=== PATIENT | male | born 1960 | race Caucasian/White ===

== ENCOUNTER 2017-06-29 19:14 | Emergency (ER) | payer MEDICAID, OTHER ==
[~2017-06-29] VITALS: Ht 180.3 cm; Wt 76.5 kg
[~2017-06-29 19:14] MED LIST: BACT800T5 PO
[2017-06-29 19:28] VITALS: RESP 18; O2SAT 98
[2017-06-29 19:29] VITALS: BP 155/87; PULSE 94; RESP 18; TEMP 99.1; O2SAT 97
[2017-06-29] MEDS ORDERED: SODIUM CHLORID 0.9% 500 ML INJ 500 ML IV ONE (19:30)
[2017-06-29] MEDS ORDERED: SODIUM CHLORIDE 0.9% FLUSH 10 ML FLUSH IVF PRN (19:30)
[2017-06-29] MEDS ORDERED: ASPIRIN 325 MG TAB PO ONE (19:30)
--- NOTE | 2017-06-29 19:38 | PD ---
HPI Chief Complaint: Chest Pain Time Seen by Provider: 19:18 Travel History International Travel<30 days: No Contact w/Intl Traveler<30days: No Traveled to known affect area: No History of Present Illness HPI Patient is 56 years old and arrives to the ER complaining of retrosternal chest pain. He reports cough and congestion for the past several days consistent with a URI. 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 Associated symptoms include shortness of breath. Ambulation to the car from work and seemed to worsen pain. He has no family history of coronary artery disease. He denies a personal history of diabetes hypertension or hyperlipidemia. He smokes. [facility] Past Medical History Diminished Hearing: No ?: Not Social History Alcohol Use: No Tobacco Use: Yes (08/07 PPD) Substance Use: No Allergies-Medications (Allergen,Severity, Reaction): Coded Allergies: No Known Allergies (Unverified , 09/16/14) Reported Meds & Prescriptions Reported Meds & Active Scripts Active Azithromycin 250 Mg Tab 250 Mg PO DAILY Bactrim DS (Sulfamethoxazole-Trimethoprim DS) 1 Tab Tab 1 Tab PO BID Review of Systems Except as stated in HPI: all other systems reviewed are Neg General / Constitutional: No: Fever Cardiovascular: Positive: Chest Pain or Discomfort, No: Diaphoresis Respiratory: Positive: Cough, Shortness of Breath Physical Exam Narrative GENERAL: 56-year-old male mild distress secondary to pain and/or shortness of breath and her anxiety SKIN: Warm and dry. HEAD: Atraumatic. Normocephalic. EYES: Pupils equal and round. No scleral icterus. No injection or drainage. ENT: No nasal bleeding or discharge. Mucous membranes pink and moist. NECK: Trachea midline. No JVD. CARDIOVASCULAR: Heart rate is approximately 100. It is regular. RESPIRATORY: Breath sounds are clear bilaterally. No tachypnea. GASTROINTESTINAL: Abdomen soft, non-tender, nondistended. Hepatic and splenic margins not palpable. MUSCULOSKELETAL: Extremities without clubbing, cyanosis, or edema. No obvious deformities. NEUROLOGICAL: Awake and alert. No obvious cranial nerve deficits. Motor grossly within normal limits. Five out of 5 muscle strength in the arms and legs. Normal speech. PSYCHIATRIC: Appropriate mood and affect; insight and judgment normal. Data Data Last Documented VS Vital Signs Date Time Temp Pulse Resp B/P (MAP) Pulse Ox O2 Delivery O2 Flow Rate FiO2 06/29/17 20:24 99.0 90 18 156/77 (103) 97 06/29/17 19:35 Nasal Cannula 2.00 Vital signs reviewed Orders Orders Electrocardiogram (06/29/17 19:24) Ckmb (Isoenzyme) Profile (06/29/17 19:24) Complete Blood Count With Diff (06/29/17 19:24) Comprehensive Metabolic Panel (06/29/17 19:24) Magnesium (Mg) (06/29/17 19:24) Troponin I (06/29/17 19:24) Lipase (06/29/17 19:24) Chest, Single Ap (06/29/17 19:24) Ecg Monitoring (06/29/17 19:24) Iv Access Insert/Monitor (06/29/17 19:24) Oximetry (06/29/17 19:24) Oxygen Administration (06/29/17 19:24) Aspirin (Aspirin) (06/29/17 19:30) Sodium Chloride 0.9% Flush (Ns Flush) (06/29/17 19:30) Nitroglycerin Sl (Nitrostat Sl) (06/29/17 19:30) Sodium Chlorid 0.9% 500 Ml Inj (Ns 500 M (06/29/17 19:30) CKMB (06/29/17 19:30) CKMB% (06/29/17 19:30) Azithromycin (Zithromax) (06/29/17 20:15) Ed Discharge Order (06/29/17 20:14) Labs Laboratory Tests Test 06/29/17 19:30 White Blood Count 15.3 TH/MM3 Red Blood Count 4.25 MIL/MM3 Hemoglobin 12.8 GM/DL Hematocrit 39.4 % Mean Corpuscular Volume 92.7 FL Mean Corpuscular Hemoglobin 30.1 PG Mean Corpuscular Hemoglobin Concent 32.5 % Red Cell Distribution Width 12.6 % Platelet Count 349 TH/MM3 Mean Platelet Volume 7.9 FL Neutrophils (%) (Auto) 79.6 % Lymphocytes (%) (Auto) 13.0 % Monocytes (%) (Auto) 6.6 % Eosinophils (%) (Auto) 0.6 % Basophils (%) (Auto) 0.2 % Neutrophils # (Auto) 12.2 TH/MM3 Lymphocytes # (Auto) 2.0 TH/MM3 Monocytes # (Auto) 1.0 TH/MM3 Eosinophils # (Auto) 0.1 TH/MM3 Basophils # (Auto) 0.0 TH/MM3 CBC Comment DIFF FINAL Differential Comment Blood Urea Nitrogen 9 MG/DL Creatinine 0.88 MG/DL Random Glucose 94 MG/DL Total Protein 7.9 GM/DL Albumin 3.3 GM/DL Calcium Level 8.8 MG/DL Magnesium Level 1.8 MG/DL Alkaline Phosphatase 77 U/L Aspartate Amino Transf (AST/SGOT) 20 U/L Alanine Aminotransferase (ALT/SGPT) 28 U/L Total Bilirubin 0.7 MG/DL Sodium Level 136 MEQ/L Potassium Level 3.3 MEQ/L Chloride Level 103 MEQ/L Carbon Dioxide Level 22.6 MEQ/L Anion Gap 10 MEQ/L Estimat Glomerular Filtration Rate 90 ML/MIN Total Creatine Kinase 150 U/L Creatine Kinase MB 2.1 NG/ML Troponin I LESS THAN 0.02 NG/ML Lipase 118 U/L [facility] Medical Decision Making Medical Screen Exam Complete: Yes Emergency Medical Condition: Yes Medical Record Reviewed: Yes Differential Diagnosis NSTEMI, unstable angina, coronary vasospasm, PE, PTX, aortic dissection, pericarditis, myocarditis, endocarditis, PNA, esophageal disease, aneurysm, musculoskeletal etiologies, anxiety, cocaine/sympathomimetic abuse Narrative Course EKG sinus, rate 101, minimal widening of the QRS complex however no ST flattening or T-wave inversion CBC & BMP Diagram 06/29/17 19:30 Total Protein 7.9, Albumin 3.3 L, Calcium Level 8.8, Magnesium Level 1.8, Alkaline Phosphatase 77, Aspartate Amino Transf (AST/SGOT) 20, Alanine Aminotransferase (ALT/SGPT) 28, Total Bilirubin 0.7 Troponin less than 0.02 Last 24 hours Impressions Chest X-Ray 06/29/171923 Signed Impressions: Service Date/Time: Friday, June 30, 2017 07:49 - CONCLUSION: Faint interstitial infiltrates without consolidation left lower lung. Bakari Arshad MD Azithromycin script Return precautions discussed Follow-up with primary care discussed Diagnosis Primary Impression: Pneumonia Qualified Codes: J18.9 - Pneumonia, unspecified organism Referrals: Primary Care Physician Additional Instructions: PLEASE FOLLOW UP WITH DR ROSSI TO DISCUSS THE NEED FOR AN OUTPATIENT CARDIAC STRESS TEST. Med/Other Pt SpecificInfo: Prescription(s) given Scripts Azithromycin (Azithromycin) 250 Mg Tab 250 MG PO DAILY for Infection, #4 TAB 0 Refills Prov: Isacc Leal MD 06/29/17 Disposition: 01 DISCHARGE HOME Condition: Stable Isacc Leal MD Jun 29, 2017 19:38
[2017-06-29 19:50] LABS: AUTOMATED NEUTROPHIL # 12.2 TH/MM3 (1.8-7.7); BASOPHIL % 0.2 % (0.0-2.0); EOSINOPHIL # 0.1 TH/MM3 (0-0.4); EOSINOPHIL % 0.6 % (0.0-4.0); HEMATOCRIT 39.4 % (39.0-51.0); MEAN CELL VOLUME 92.7 FL (80.0-100.0); MEAN CORPUSCULAR HEMOGLOBIN 30.1 PG (27.0-34.0); MEAN CORPUSCULAR HGB CONC 32.5 % (32.0-36.0); MONO % 6.6 % (0.0-8.0); NEUT % 79.6 % (16.0-70.0); PLATELET COUNT 349 TH/MM3 (150-450); RED BLOOD COUNT 4.25 MIL/MM3 (4.50-5.90); RED CELL DISTRIBUTION WIDTH 12.6 % (11.6-17.2); WHITE BLOOD COUNT 15.3 TH/MM3 (4.0-11.0)
[2017-06-29 19:51] LABS: HEMO FLAGS DIFF FINAL
[2017-06-29] MEDS: NITROGLYCERIN 0.4 MG SL 25 TABS/BTL SL SCH ×3 (19:54→20:12)
[2017-06-29 19:56] LABS: CHLORIDE 103 MEQ/L (98-107); POTASSIUM 3.3 MEQ/L (3.5-5.1); SODIUM (NA) 136 MEQ/L (136-145)
[2017-06-29 20:00] LABS: ANION GAP 10 MEQ/L (5-15); BICARBONATE 22.6 MEQ/L (21.0-32.0); BLOOD UREA NITROGEN 9 MG/DL (7-18); MAGNESIUM 1.8 MG/DL (1.5-2.5)
--- NOTE | 2017-06-29 20:01 | RADRPT ---
EXAM DATE/TIME: 06/29/2017 19:25 CORRECTION Corrected on: July 04, 2017; fixed date and time [place] COMPARISON: No previous studies available for comparison. INDICATIONS : Chest pain. MEDICAL HISTORY : None. SURGICAL HISTORY : None. ENCOUNTER: Initial ACUITY: 1 day PAIN SCORE: 8/10 LOCATION: Bilateral chest FINDINGS: Frontal view of the chest demonstrates symmetrically aerated lungs. There is some patchy interstitia l opacities at the left base suggesting non-consolidative infiltrate. Right lung is clear. Both hem idiaphragms well delineated. The heart is normal in size. CONCLUSION: Faint interstitial infiltrates without consolidation left lower lung. Bakari Arshad MD on June 29, 2017 at 19:59 Board Certified Radiologist. This report was verified electronically. Scotty Carney on July 04, 2017 at 13:31 Board Certified Radiologist. This report was verified electronically.
[2017-06-29 20:03] LABS: ALT (GPT) 28 U/L (12-78); AST (GOT) 20 U/L (15-37); GLOMERULAR FILTRATION RATE 90 ML/MIN (>89)
[2017-06-29 20:05] LABS: TOTAL BILIRUBIN ADULT 0.7 MG/DL (0.2-1.0)
[2017-06-29 20:06] LABS: ALKALINE PHOSPHATASE 77 U/L (45-117); CREATINE KINASE 150 U/L (39-308)
[2017-06-29 20:07] VITALS: RESP 18
[2017-06-29] MEDS ORDERED: AZIT250T3 PO (20:13)
[2017-06-29] MEDS ORDERED: AZITHROMYCIN 250 MG TAB PO ONE (20:15)
[2017-06-29 20:18] LABS: CKMB 2.1 NG/ML (0.5-3.6)
[2017-06-29 20:24] VITALS: BP 156/77; TEMP 99
--- NOTE | 2017-06-30 15:07 | EKG ---
Date Performed: 06/29/2017 Time Performed: 19:20:29 PTAGE: 56 years EKG: SINUS TACHYCARDIA ABNORMAL RHYTHM ECG INTERPRETATION BASED ON A DEFAULT AGE OF 40 YEARS NO PREVIOUS TRACING DOCTOR: Matthew Leal Interpretating Date/Time 06/30/2017 15:07:05
== END 2017-06-29 20:35 | disposition home or self-care (01) ==
LOC: PHED 19:14
DX: J18.9 Pneumonia, unspecified organism (principal); R94.31 Abnormal electrocardiogram [ECG] [EKG]; F17.210 Nicotine dependence, cigarettes, uncomplicated
CPT/HCPCS: 71010; 80053; 82550; 82552; 83690; 83735; 84484; 85025; 93005; 96360; 99285; J7040